=== PATIENT | female | born 1950 | race Caucasian/White ===

== ENCOUNTER 2017-03-15 07:35 | Day surgery (SDC) | payer MEDICARE ==
[~2017-03-15] VITALS: Ht 172.7 cm; Wt 132.0 kg
[~2017-03-15 07:35] MED LIST: 0.9% Sodium Chloride 1,000 ML IV SCH; CITA40TA PO; ERGO2000 PO; FERR325T40 PO; FUR20 PO; MULT-1065 PO; OMEP20CA11 PO; PHEN-683 PO; PRAM0.5T3 PO; SIMV20TA4 PO; Sodium Chloride LOK Flush 10 mL Syringe IV PRN; fentaNYL-PF 50 mCg/mL 2 mL Inj IVPUSH PRN
[2017-03-15 08:05] VITALS: BP 138/92; PULSE 88; RESP 14; O2SAT 97
[2017-03-15 09:04] VITALS: BP 149/83; PULSE 78; RESP 14; O2SAT 94
[2017-03-15 09:17] VITALS: BP 153/87; PULSE 77; RESP 14; O2SAT 96
--- NOTE | 2017-03-15 09:42 | ENDO ---
[address] [address] ENDOSCOPY PROCEDURE PATIENT: MED MARTINEZ : 1950 MR#: [id number] ADMIT: 03/15/2017 JOB ID: [id number] DATE OF SERVICE: 03/15/2017 PRIMARY PROVIDER: Osmany Buckley DO. PROCEDURE: Esophagogastroduodenoscopy with biopsy. INDICATIONS: A 66-year-old female with a history of hiatal hernia, status post repair, perforation and subsequent repair. She, however, has a persistent hiatal hernia and manages the reflux element with omeprazole. She, however, has an iron deficiency anemia. Colonoscopy is up to date. EGD is therefore pursued. EQUIPMENT: GIF-H180J. SEDATION: 1. Versed 4 mg Versed. 2. Fentanyl 100 mcg. COMPLICATIONS: None identified. PROCEDURE INFORMATION: After the risks and benefits were explained, written and verbal informed consent was obtained. The patient was brought into the endoscopy suite and placed into the left lateral decubitus position. Sedation was achieved as above. The scope introduced into the mouth through the bite block, and advanced to the second portion of the duodenum. The scope was slowly withdrawn to carefully examine the mucosa for any defects or lesions. Retroflexed views were accomplished in the stomach. The stomach was decompressed. The scope removed from the patient who tolerated the procedure well. FINDINGS: 1. Duodenum: No pathology appreciated from the bulb through to the second portion. Random biopsies were taken for exclusion of celiac in light of the iron deficiency picture. 2. Stomach: The patient had some streaky erythema in the antrum, and there were some erythematous, linear, subtle erosions seen in the proximal body suggestive of mild Marty type erosions. However, there was also a focal, quite friable area covering about 3 cm in greatest dimension in the proximal body. Even with water irrigation this induced some mild epithelial hemorrhage. There was an adherent exudate over this area that was easily washed away. Photographs were taken, and biopsy was also acquired from this location for exclusion of underlying neoplasia or other histopathology. We would also like to exclude H. pylori infection. Otherwise, retroflexed views from within the stomach demonstrated a prior Yordan fundoplication. 3. Esophagus: GEJ was at about 34 cm from the incisors. This was sliding up just ever so slightly from the diaphragmatic hiatus consistent with mild slippage of the prior Yordan. Did not see any acute erosive features. The remainder of the esophagus was unremarkable. ENDOSCOPIC DIAGNOSES: 1. Mild Yordan slippage. 2. Subtle Marty erosions. 3. Focal friable, erosive gastropathy -- biopsied. RECOMMENDATIONS: 1. Await histopathology. 2. If helicobacter is found, then it will need to be eradicated with standard triple therapy. 3. Continue medical reflux intervention. 4. Continue iron supplementation.
--- NOTE | 2017-03-20 16:10 | PATH ---
SURGICAL PATHOLOGY Attending Physician:Ankit Donato CASE STATUS: Signed Out PATIENT NAME: MED MARTINEZ PID: [id number] : 1950 DATE COLLECTED:03/15/2017 19:28 SPECIMEN: 1: Gastric, Biopsy 2: Duodenum, Biopsy CLINICAL HISTORY: 1). GASTRIC BODY BIOPSY AND RULE OUT H PYLORI 2). DUODENUM BIOPSY FINAL DIAGNOSIS: 1. Gastric Biopsy, Biopsy: Gastric body mucosa with iron pill gastritis. Helicobacter organisms not identified. Negative for intestinal metaplasia, dysplasia or malignancy. 2. Duodenum, Biopsy: Duodenal mucosa with no diagnostic abnormality. Negative for active inflammation, features of sprue, dysplasia or malignancy. ICD10: D50.9 GROSS DESCRIPTION: The specimen is received in two formalin filled containers labeled with the patient's name. 1). The specimen is labeled "gastric body" and consists of a 0.3 x 0.3 x 0.3 CM portion of tissue which is entirely submitted in cassette 1A. 2). The specimen is labeled "duodenum" and consists of 0.2 x 0.2 x 0.2 CM. The specimen is totally submitted in cassette 2A. 03/15/2017DC ICD-9 CODES: CPT CODES: 1: 36880 2: 66206 Electronically Signed Out Asad Marley MD, Ph.D. [facility] Pathology [facility] [address], [place] [address] Technical component performed at [facility], [address] [place] [address] Ave[address], [place], [address]
== END 2017-03-15 23:59 | disposition home or self-care (01) ==
LOC: END 07:35
PROVIDERS: ATTEND Internal Medicine Gastroenterology
DX: K29.70 Gastritis, unspecified, without bleeding (principal); K25.9 Gastric ulcer, unspecified as acute or chronic, without hemorrhage or perforation; D50.9 Iron deficiency anemia, unspecified; I10 Essential (primary) hypertension; E78.5 Hyperlipidemia, unspecified; K44.9 Diaphragmatic hernia without obstruction or gangrene; F32.9 Major depressive disorder, single episode, unspecified; K21.9 Gastro-esophageal reflux disease without esophagitis; R06.00 Dyspnea, unspecified; M50.30 Other cervical disc degeneration, unspecified cervical region; M19.90 Unspecified osteoarthritis, unspecified site; M48.06 Spinal stenosis, lumbar region; G25.81 Restless legs syndrome; G47.33 Obstructive sleep apnea (adult) (pediatric); E66.01 Morbid (severe) obesity due to excess calories; E05.90 Thyrotoxicosis, unspecified without thyrotoxic crisis or storm; Z86.010 Personal history of colon polyps; Z68.41 Body mass index [BMI] 40.0-44.9, adult
CPT/HCPCS: 43239; G0500; J2250; J3010; J7030